=== PATIENT | female | born 1965 | race Two or more races ===

== ENCOUNTER 2021-04-09 09:33 | Outpatient (CLI) | payer OTHER | END 2021-04-09 09:34 | disposition home or self-care (01) | LOC: NUCLEAR 09:33 | PROVIDERS: ATTEND Internal Medicine Cardiovascular Disease | DX: G45.1 Carotid artery syndrome (hemispheric) (principal) ==

== ENCOUNTER 2021-06-02 12:14 | Outpatient (CLI) | payer OTHER | END 2021-06-02 12:15 | disposition home or self-care (01) | LOC: NUCLEAR 12:14 | PROVIDERS: ATTEND Internal Medicine Cardiovascular Disease | DX: I87.2 Venous insufficiency (chronic) (peripheral) (principal) ==

== ENCOUNTER 2021-09-18 11:06 | Outpatient (CLI) | payer OTHER | END 2021-09-18 11:08 | disposition home or self-care (01) | LOC: MRI 11:06 | PROVIDERS: ATTEND Physical Medicine & Rehabilitation | DX: M54.41 Lumbago with sciatica, right side (principal); S33.8XXD Sprain of other parts of lumbar spine and pelvis, subsequent encounter; M51.36 Other intervertebral disc degeneration, lumbar region | CPT/HCPCS: 72148 ==

== ENCOUNTER 2024-10-14 20:15 | Emergency (ER) | payer OTHER ==
[~2024-10-14] VITALS: Ht 175.3 cm; Wt 90.7 kg
[2024-10-14] MEDS ORDERED: SYNTHROID112 MCG PO (20:38)
[2024-10-14] MEDS ORDERED: ORPHENADRINE CITRATE 30 MG/ML AMPUL IM STA (21:53)
[2024-10-14] MEDS ORDERED: KETOROLAC TROMETHAMINE 60 MG VIAL IM STA (21:53)
[2024-10-14] MEDS ORDERED: TRAMADOL HCL 50 MG TABLET PO STA (21:54)
[2024-10-14] MEDS ORDERED: DEXAMETHASONE SODIUM PHOSPHATE 4 MG/ML VIAL IM STA (21:54)
[2024-10-14] MEDS ORDERED: KETOROLAC TROMETHAMINE 60 MG VIAL IM ONE (22:04)
[2024-10-14] MEDS ORDERED: ORPHENADRINE CITRATE 30 MG/ML AMPUL ONE (22:04)
[2024-10-14] MEDS ORDERED: DEXAMETHASONE SODIUM PHOSPHATE 4 MG/ML VIAL ONE (22:05)
== END 2024-10-14 22:21 | disposition home or self-care (01) ==
LOC: ER 20:16
DX: M54.41 Lumbago with sciatica, right side (principal); Z88.2 Allergy status to sulfonamides